=== PATIENT | female | born 1940 | race Caucasian/White ===

== ENCOUNTER 2017-10-08 12:20 | Emergency (ER) | payer OTHER ==
[~2017-10-08] VITALS: Ht 167.6 cm; Wt 100.7 kg
[2017-10-08 12:23] VITALS: BP 228/95; PULSE 72; RESP 18; TEMP 97.6; O2SAT 96
--- NOTE | 2017-10-08 12:37 | PD ---
HPI Chief Complaint: Dizziness Time Seen by Provider: 12:32 Travel History International Travel<30 days: No Contact w/Intl Traveler<30days: No Traveled to known affect area: No History of Present Illness HPI 76-year-old female patient presents to the ER today for dizziness that started at 6 AM. She has been nauseous, feels generally weak. She denies any fevers, chest pains, trouble breathing, or other symptoms. Symptoms seems to worsen when she tries to pepper picker something or bends her head down. She denies any focal numbness or weakness. She denies any previous episodes. Modifying Factors: None Associated Signs & Symptoms: Dizziness, nausea, general weakness Risk Factors: None PFSH Social History Tobacco Use: No Allergies-Medications (Allergen,Severity, Reaction): Coded Allergies: No Known Allergies (Unverified , 10/08/17) Reported Meds & Prescriptions Reported Meds & Active Scripts Active Meclizine (Meclizine HCl) 25 Mg Tab 25 Mg PO TID PRN Zofran Odt (Ondansetron Odt) 4 Mg Tab 4 Mg SL Q6HR PRN Review of Systems Except as stated in HPI: all other systems reviewed are Neg Physical Exam Narrative GENERAL: Well-developed elderly white female patient currently and moderate distress. Awake and oriented 3. SKIN: Focused skin assessment warm/dry. HEAD: Atraumatic. Normocephalic. EYES: Pupils equal and round and reactive to light bilaterally. No scleral icterus. No injection or drainage. Extraocular movements are intact. ENT: No nasal bleeding or discharge. Mucous membranes pink and moist. NECK: Trachea midline. No JVD. Supple. CARDIOVASCULAR: Regular rate and rhythm. No murmur appreciated. RESPIRATORY: No accessory muscle use. Clear to auscultation. Breath sounds equal bilaterally. GASTROINTESTINAL: Abdomen soft, non-tender, nondistended. Hepatic and splenic margins not palpable. MUSCULOSKELETAL: No obvious deformities. No clubbing. No cyanosis. No edema. NEUROLOGICAL: Awake and alert. No obvious cranial nerve deficits. Motor grossly within normal limits. Normal speech. PSYCHIATRIC: Appropriate mood and affect; insight and judgment normal. Data Data Last Documented VS Vital Signs Date Time Temp Pulse Resp B/P (MAP) Pulse Ox O2 Delivery O2 Flow Rate FiO2 10/08/17 14:06 173/82 (112) 10/08/17 13:00 20 10/08/17 12:23 97.6 72 96 Orders Orders Electrocardiogram (10/08/17 12:32) Complete Blood Count With Diff (10/08/17 12:32) Comprehensive Metabolic Panel (10/08/17 12:32) Magnesium (Mg) (10/08/17 12:32) Ckmb (Isoenzyme) Profile (10/08/17 12:32) Troponin I (10/08/17 12:32) Act Partial Throm Time (Ptt) (10/08/17 12:32) Prothrombin Time / Inr (Pt) (10/08/17 12:32) Urinalysis - C+S If Indicated (10/08/17 12:32) Ct Brain W/O Iv Contrast(Rout) (10/08/17 12:32) Ecg Monitoring (10/08/17 12:32) Iv Access Insert/Monitor (10/08/17 12:32) Oximetry (10/08/17 12:32) Meclizine (Antivert) (10/08/17 12:45) Ondansetron Inj (Zofran Inj) (10/08/17 12:45) Sodium Chloride 0.9% Flush (Ns Flush) (10/08/17 12:45) CKMB (10/08/17 12:45) CKMB% (10/08/17 12:45) Labs Laboratory Tests Test 10/08/17 12:45 10/08/17 13:15 White Blood Count 8.7 TH/MM3 Red Blood Count 4.52 MIL/MM3 Hemoglobin 13.3 GM/DL Hematocrit 39.4 % Mean Corpuscular Volume 87.3 FL Mean Corpuscular Hemoglobin 29.4 PG Mean Corpuscular Hemoglobin Concent 33.7 % Red Cell Distribution Width 13.8 % Platelet Count 297 TH/MM3 Mean Platelet Volume 8.1 FL Neutrophils (%) (Auto) 78.2 % Lymphocytes (%) (Auto) 17.3 % Monocytes (%) (Auto) 3.0 % Eosinophils (%) (Auto) 0.2 % Basophils (%) (Auto) 1.3 % Neutrophils # (Auto) 6.8 TH/MM3 Lymphocytes # (Auto) 1.5 TH/MM3 Monocytes # (Auto) 0.3 TH/MM3 Eosinophils # (Auto) 0.0 TH/MM3 Basophils # (Auto) 0.1 TH/MM3 CBC Comment DIFF FINAL Differential Comment Blood Urea Nitrogen 15 MG/DL Creatinine 0.77 MG/DL Random Glucose 130 MG/DL Total Protein 8.0 GM/DL Albumin 3.7 GM/DL Calcium Level 8.7 MG/DL Magnesium Level 2.2 MG/DL Alkaline Phosphatase 116 U/L Aspartate Amino Transf (AST/SGOT) 45 U/L Alanine Aminotransferase (ALT/SGPT) 50 U/L Total Bilirubin 0.4 MG/DL Sodium Level 135 MEQ/L Potassium Level 4.3 MEQ/L Chloride Level 104 MEQ/L Carbon Dioxide Level 22.7 MEQ/L Anion Gap 8 MEQ/L Estimat Glomerular Filtration Rate 73 ML/MIN Total Creatine Kinase 123 U/L Creatine Kinase MB 1.9 NG/ML Troponin I LESS THAN 0.02 NG/ML Prothrombin Time 9.9 SEC Prothromb Time International Ratio 1.0 RATIO Activated Partial Thromboplast Time 27.1 SEC Urine Collection Type VOIDED Urine Color YELLOW Urine Turbidity CLOUDY Urine pH 7.0 Urine Specific [place] 1.015 Urine Protein 30 mg/dL Urine Glucose (UA) NEG mg/dL Urine Ketones NEG mg/dL Urine Occult Blood TRACE Urine Nitrite NEG Urine Bilirubin NEG Urine Urobilinogen 0.2 MG/DL Urine Leukocyte Esterase NEG Urine WBC 0-2 /hpf Urine Squamous Epithelial Cells 0-3 /hpf Urine Amorphous Sediment FEW Microscopic Urinalysis Comment CULT NOT INDICATED MDM Medical Decision Making Medical Screen Exam Complete: Yes Emergency Medical Condition: Yes Medical Record Reviewed: Yes Interpretation(s) EKG shows NSR, no ST elevation or depression, and no arrhythmias. No significant T-wave inversions. Laboratory Tests Test 10/08/17 12:45 10/08/17 13:15 Neutrophils (%) (Auto) 78.2 % (16.0-70.0) Random Glucose 130 MG/DL (74-106) Aspartate Amino Transf (AST/SGOT) 45 U/L (15-37) Sodium Level 135 MEQ/L (136-145) Estimat Glomerular Filtration Rate 73 ML/MIN (>89) Troponin I LESS THAN 0.02 NG/ML Urine Turbidity CLOUDY (CLEAR) Urine Protein 30 mg/dL (NEG-TRACE) Last [address] 10/08/17 9892 Signed Impressions: Service Date/Time: Sunday, October 08, 2017 12:56 - CONCLUSION: No evidence of acute intracranial pathology. No masses are identified. Logan Sprague MD Differential Diagnosis Hypertensive urgency versus acute intracranial processes versus metabolic issues versus dysrhythmias versus benign positional vertigo Narrative Course Patient was given Zofran and meclizine in the ER. Her initial blood pressure was fairly elevated. EKG did not show any signs of significant dysrhythmias or ST changes. CT of the brain was negative for any signs of acute intracranial processes. On reevaluation at 2 PM, the patient is feeling improved and did not have any further vomiting episodes in the ER. Her blood pressure is improved on its own as well. At this point, lab work returns not show any significant metabolic issues. She has no focal neurological deficits. Suspect symptoms secondary to vertigo. My plan would be to release her with follow-up to primary care doctor. Return for worsening in symptoms as necessary. The plan was discussed with her and she states understanding. In addition, I have notified her regarding her elevated blood pressures here in the ER and this will need to be evaluated with primary care doctor as well. Diagnosis Primary Impression: Vertigo Additional Impression: High blood pressure Med/Other Pt SpecificInfo: Prescription(s) given Scripts Meclizine (Meclizine) 25 Mg Tab 25 MG PO TID Y for VERTIGO, #15 TAB 0 Refills Prov: Karen Earl MD 10/08/17 Ondansetron Odt (Zofran Odt) 4 Mg Tab 4 MG SL Q6HR Y for Nausea/Vomiting, #7 TAB 0 Refills Prov: Karen Earl MD 10/08/17 Disposition: 01 DISCHARGE HOME Condition: Stable Karen Earl MD Oct 08, 2017 12:37
[2017-10-08] MEDS ORDERED: SODIUM CHLORIDE 0.9% FLUSH 10 ML FLUSH IVF PRN (12:45)
[2017-10-08] MEDS ORDERED: ONDANSETRON HCL 4 MG/2 ML VIAL IVP ONE (12:45)
[2017-10-08] MEDS ORDERED: MECLIZINE HCL 25 MG TAB PO ONE (12:45)
[2017-10-08 12:50] LABS: AUTOMATED NEUTROPHIL # 6.8 TH/MM3 (1.8-7.7); BASOPHIL # 0.1 TH/MM3 (0-0.2); BASOPHIL % 1.3 % (0.0-2.0); EOSINOPHIL % 0.2 % (0.0-4.0); HEMATOCRIT 39.4 % (35.0-46.0); HEMOGLOBIN 13.3 GM/DL (11.6-15.3); LYMPH % 17.3 % (9.0-44.0); LYMPHOCYTE # 1.5 TH/MM3 (1.0-4.8); MEAN CELL VOLUME 87.3 FL (80.0-100.0); MEAN CORPUSCULAR HEMOGLOBIN 29.4 PG (27.0-34.0); MEAN CORPUSCULAR HGB CONC 33.7 % (32.0-36.0); MEAN PLATELET VOLUME 8.1 FL (7.0-11.0); MONOCYTE # 0.3 TH/MM3 (0-0.9); NEUT % 78.2 % (16.0-70.0); PLATELET COUNT 297 TH/MM3 (150-450); RED BLOOD COUNT 4.52 MIL/MM3 (4.00-5.30); RED CELL DISTRIBUTION WIDTH 13.8 % (11.6-17.2); WHITE BLOOD COUNT 8.7 TH/MM3 (4.0-11.0)
[2017-10-08 13:00] VITALS: O2SAT 97
[2017-10-08 13:01] LABS: CHLORIDE 104 MEQ/L (98-107); SODIUM (NA) 135 MEQ/L (136-145)
[2017-10-08 13:04] LABS: CALCIUM 8.7 MG/DL (8.5-10.1)
[2017-10-08 13:05] LABS: ALBUMIN 3.7 GM/DL (3.4-5.0); BICARBONATE 22.7 MEQ/L (21.0-32.0); BLOOD UREA NITROGEN 15 MG/DL (7-18); GLUCOSE,RANDOM 130 MG/DL (74-106); MAGNESIUM 2.2 MG/DL (1.5-2.5)
[2017-10-08 13:08] LABS: ALT (GPT) 50 U/L (10-53); AST (GOT) 45 U/L (15-37); CREATININE 0.77 MG/DL (0.50-1.00); GLOMERULAR FILTRATION RATE 73 ML/MIN (>89)
[2017-10-08 13:09] LABS: TOTAL BILIRUBIN ADULT 0.4 MG/DL (0.2-1.0)
[2017-10-08 13:11] LABS: ALKALINE PHOSPHATASE 116 U/L (45-117)
[2017-10-08 13:13] LABS: TROPONIN I LESS THAN 0.02 NG/ML (0.02-0.05)
[2017-10-08 13:28] LABS: BILIRUBIN, URINE NEG (NEG); BLOOD, URINE TRACE (NEG); GLUCOSE,URINE NEG (NEG); KETONE, URINE NEG (NEG); NITRITE,URINE NEG (NEG); URINE COLOR YELLOW (YELLW/STRAW); URINE LEUKOCYTE ESTERASE NEG (NEG)
[2017-10-08 13:30] VITALS: BP 170/76
[2017-10-08 13:39] LABS: AMORPHOUS SEDIMENT, URINE FEW; SQUAMOUS EPITHELIAL CELL URINE 0-3 /hpf (0-5); WBC, URINE 0-2 /hpf (0-5)
[2017-10-08 14:06] VITALS: BP 173/82
[2017-10-08 14:08] LABS: PROTHROMBIN TIME - PATIENT 9.9 SEC (9.8-11.6)
--- NOTE | 2017-10-08 14:11 | RADRPT ---
EXAM DATE/TIME: 10/08/2017 12:56 [facility] COMPARISON: No previous studies available for comparison. INDICATIONS : Weakness and hypertensive this morning. RADIATION DOSE: 59.24 CTDIvol (mGy) MEDICAL HISTORY : None SURGICAL HISTORY : None. ENCOUNTER: Initial ACUITY: 1 day PAIN SCALE: 0/10 LOCATION: cranial TECHNIQUE: Multiple contiguous axial images were obtained of the head. Using automated exposure control and adj ustment of the mA and/or kV according to patient size, radiation dose was kept as low as reasonably a chievable to obtain optimal diagnostic quality images. DICOM format image data is available electro nically for review and comparison. FINDINGS: CEREBRUM: The ventricles are normal for age. No evidence of midline shift, mass lesion, hemorrhage or acute in farction. No extra-axial fluid collections are seen. POSTERIOR FOSSA: The cerebellum and brainstem are intact. The 4th ventricle is midline. The cerebellopontine angle i s unremarkable. EXTRACRANIAL: The visualized portion of the orbits is intact. SKULL: The calvaria is intact. No evidence of skull fracture. CONCLUSION: No evidence of acute intracranial pathology. No masses are identified. Logan Sprague MD on October 08, 2017 at 14:08 Board Certified Radiologist. This report was verified electronically.
[2017-10-08] MEDS ORDERED: ZOFR4TAB3 SL (14:32)
[2017-10-08] MEDS ORDERED: MECL-62 PO (14:32)
--- NOTE | 2017-10-09 16:11 | EKG ---
Date Performed: 10/08/2017 Time Performed: 12:37:49 PTAGE: 76 years EKG: Sinus rhythm BORDERLINE LEFT AXIS DEVIATION NONSPECIFIC ST & T-WAVE ABNORMALITY BORDERLINE ECG NO PREVIOUS TRACING DOCTOR: Rich Chaney Interpretating Date/Time 10/09/2017 16:08:28
== END 2017-10-08 15:19 | disposition home or self-care (01) ==
LOC: PHED 12:20
DX: R42 Dizziness and giddiness (principal); R03.0 Elevated blood-pressure reading, without diagnosis of hypertension; R94.31 Abnormal electrocardiogram [ECG] [EKG]; R53.1 Weakness
CPT/HCPCS: 70450; 80053; 81001; 82550; 82552; 83735; 84484; 85025; 85610; 85730; 93005; 96374; 99284; J2405